=== PATIENT | male | born 1985 | race Caucasian/White ===

== ENCOUNTER 2018-12-19 09:46 | Emergency (ER) | payer BC, OTHER ==
[~2018-12-19] VITALS: Ht 175.3 cm; Wt 103.4 kg
[2018-12-19 09:58] VITALS: Ht 175.3 cm; Wt 103.4 kg
[2018-12-19 11:02] LABS: BASOPHIL % 0.4 % (0-2); PLATELET COUNT 290 x10^3mcL (130-400); RED CELL DISTRIBUTION WIDTH 12.7 % (11.5-14.5)
[2018-12-19 11:08] LABS: CARBON DIOXIDE 30.3 mmol/L (21-32); CHLORIDE SERUM 101 mmol/L (98-107); GFR1 > 60 mL/min; GLUCOSE SERUM 121 mg/dL (74-106); POTASSIUM SERUM 4.5 mmol/L (3.5-5.1); SODIUM SERUM 137 mmol/L (136-145)
[2018-12-19 11:10] LABS: ALBUMIN 4.3 g/dL (3.4-5.0); ALKALINE PHOSPHATASE 56 U/L (46-116); ALT/SGPT 74 U/L (16-63); AST/SGOT 37 U/L (15-37); BILIRUBIN TOTAL 0.4 mg/dL (0.20-1.00)
[2018-12-19 11:12] LABS: TOTAL PROTEIN, SERUM 8.3 g/dL (6.4-8.2)
[2018-12-19 12:14] VITALS: BP 125/41
== END 2018-12-19 12:14 | disposition home or self-care (01) ==
LOC: ED 09:46
PROVIDERS: Emergency Medicine
DX: R51 Headache (principal); R42 Dizziness and giddiness; R11.0 Nausea; E78.00 Pure hypercholesterolemia, unspecified
CPT/HCPCS: J2765; J7030